=== PATIENT | female | born 1950 ===

== ENCOUNTER 2017-04-22 08:32 | Outpatient (CLI) | payer MEDICARE ==
--- NOTE | 2017-04-22 09:18 | XRay Report ---
XRAY LEFT KNEE 4 THREE VIEWS: 04/22/17 CLINICAL: Knee pain. FINDINGS: Mild osteopenia.Osteoarthritis of the medial joint space with loss of the joint space and large medial osteophytes. Widening of the lateral joint space. Patellofemoral joint osteoarthritis with small osteophytes. No fracture or dislocation. No joint effusion. Normal soft tissues. IMPRESSION: Osteoarthritis with greatest involvement of the medial joint space.
== END 2017-04-22 08:33 | disposition home or self-care (01) ==
LOC: SPVIMAG 08:32
PROVIDERS: ATTEND Orthopaedic Surgery
DX: M17.12 Unilateral primary osteoarthritis, left knee (principal); M85.862 Other specified disorders of bone density and structure, left lower leg